=== PATIENT | male | born 1970 | race Caucasian/White ===

== ENCOUNTER 2020-03-23 13:19 | Emergency (ER) | payer MEDICAID, SELFPAY ==
[2020-03-23 13:27] VITALS: BP 142/106; PULSE 103; RESP 18; TEMP 37; O2SAT 99
--- NOTE | 2020-03-23 13:42 | ED.GENADULT ---
HPI - General Adult General Chief complaint: Psychiatric Symptoms <Sonia Tenorio MD - Last Filed: 04/05/20 07:17> Stated complaint: suicidal thoughts <Sonia Tenorio MD - Last Filed: 04/05/20 07:17> Time Seen by Provider: 03/23/20 13:26 <Sonia Tenorio MD - Last Filed: 04/05/20 07:17> Source: patient <Sonia Tenorio MD - Last Filed: 04/05/20 07:17> History of Present Illness HPI narrative: Patient is a 49 y/o male complaining of severe depression for last month. According to his friend, he lost his job and insurance several month ago. He is not on any meds for bipolar because he has no insurance. He has considered cutting his wrist and jumping in traffic. His friend also states that he talked about using his family's gun. He denies any fever, chills, chest pain, abdominal pain. <Sonia Tenorio MD - Last Filed: 04/05/20 07:17> Related Data Home medications: Home Medications Medication Instructions Recorded Confirmed No Home Medications 03/23/20 03/23/20 <oSnia Tenorio MD - Last Filed: 04/05/20 07:17> Allergies/adverse reactions: Allergies Allergy/AdvReac Type Severity Reaction Status Date / Time Sulfa (Sulfonamide Allergy Unknown Verified 03/23/20 13:36 Antibiotics) <Sonia Tenorio MD - Last Filed: 04/05/20 07:17> Review of Systems Constitutional: Constitutional: Denies chills, Denies fever(s), Denies headache(s) and Denies weakness <Sonia Tenorio MD - Last Filed: 04/05/20 07:17> Eyes: Eyes: Denies blurry vision <Sonia Tenorio MD - Last Filed: 04/05/20 07:17> ENT: Denies headache(s) and Denies neck pain <Sonia Tenorio MD - Last Filed: 04/05/20 07:17> Cardiovascular: Cardiovascular: Denies chest pain and Denies dyspnea <Sonia Tenorio MD - Last Filed: 04/05/20 07:17> Respiratory: Respiratory: Denies cough and Denies dyspnea <Sonia Tenorio MD - Last Filed: 04/05/20 07:17> Gastrointestinal: Gastrointestinal: Denies abdominal pain, Denies diarrhea, Denies nausea and Denies vomiting <Sonia Tenorio MD - Last Filed: 04/05/20 07:17> Genitourinary: Genitourinary: Denies hematuria and Denies dysuria <Sonia Tenorio MD - Last Filed: 04/05/20 07:17> Musculoskeletal: Musculoskeletal: Denies back pain and Denies neck pain <Sonia Tenorio MD - Last Filed: 04/05/20 07:17> Neurologic: Denies headache(s) and Denies weakness <Sonia Tenorio MD - Last Filed: 04/05/20 07:17> Psychiatric: Psychiatric: Reports as per HPI, Reports depression and Reports suicidal ideation <Sonia Tenorio MD - Last Filed: 04/05/20 07:17> [facility] Social History Social History: Social History Gender identity (if verbalized by the patient): Male <Sonia Tenorio MD - Last Filed: 04/05/20 07:17> Exam Const: General: no acute distress and well developed <Sonia Tenorio MD - Last Filed: 04/05/20 07:17> Orientation/consciousness: oriented to person, oriented to place, oriented to time and patient oriented x3 <Sonia Tenorio MD - Last Filed: 04/05/20 07:17> HENMT: Head: normocephalic <Sonia Tenorio MD - Last Filed: 04/05/20 07:17> Ears: external ears normal <Sonia Tenorio MD - Last Filed: 04/05/20 07:17> General nose exam: Normal external nose present <Sonia Tenorio MD - Last Filed: 04/05/20 07:17> Eyes: General: appearance normal, both eyes and all related structures <Sonia Tenorio MD - Last Filed: 04/05/20 07:17> Conjunctivae: conjunctivae normal <Sonia Tenorio MD - Last Filed: 04/05/20 07:17> Neck: Neck: normal visual inspection and full ROM <Sonia Tenorio MD - Last Filed: 04/05/20 07:17> Chest: Chest palpation & inspection: normal inspection of the chest and no tenderness <Sonai Tenorio MD - Last Filed: 04/05/20 07:17> Resp: Effort & Inspection: normal respiratory effort <Sonia Tenorio MD - Last Filed: 04/05/20 07:17> Auscultation: clear to auscultation bilaterally <Sonia Tenorio MD - Last Filed:
[2020-03-23 13:53] LABS: Basophils Percent Auto 0.4 % (0.2-1.2); Eosinophils Absolute Auto 0.4 K/mm3 (0-0.3); Eosinophils Percent Auto 3.7 % (0-4.4); Hematocrit 52.2 % (42.0-52.0); Immature Granulocyte Absolute 0.04 K/mm3 (0.00-0.031); Immature Granulocyte Percent A 0.4 % (0-0.5); Lymphocytes Absolute Auto 2.28 K/mm3 (0.9-3.2); Lymphocytes Percent Auto 22.9 % (18.3-44.2); Mean Corpuscular HGB Conc 34.5 g/dl (32-36); Mean Corpuscular Hemoglobin 29.7 pg (26-34); Mean Platelet Volume 9.9 fl (7.4-10.4); Monocytes Absolute Auto 0.5 K/mm3 (0.1-0.6); Neutrophils Absolute Auto 6.7 K/mm3 (1.3-6.7); Neutrophils Percent Auto 67.6 % (45.5-73.1); Platelet Count Result 251 k/mm3 (150-375); Red Blood Count 6.07 M/mm3 (4.6-6.20); Red Cell Distribution Width 14.2 % (11.5-14.5)
[2020-03-23 13:54] LABS: Add Urine Microscopic? NO; Appearance Urine Clear (Clear); Bilirubin Urine Negative (Negative); Blood Urine Negative (Negative); Color Urine Yellow (Yellow); Glucose Urine UA Negative (Negative); Ketones Urine Negative (Negative); Leukocyte Esterase Ur Negative LEU/UL (Negative); Nitrate Urine Negative (Negative); Protein Urine Negative (Negative); Specific Grav Ur 1.013 (1.001-1.035); Urobilinogen Urine Negative mg/dL (<2.0)
[2020-03-23 14:01] LABS: Alanine Aminotransferase 22 U/L (4-50); Albumin Level 4.6 g/dL (3.5-5.1); Alkaline Phosphatase 117 U/L (38-126); Anion Gap 9 mmol/L (8-16); Aspartate Amino Transferase 26 U/L (17-59); Bilirubin,Total 0.5 mg/dL (0.2-1.3); Blood Urea Nitrogen 15 mg/dL (9-20); Calcium 9.7 mg/dL (8.4-10.2); Carbon Dioxide 24 mmol/L (22-30); Chloride 103 mmol/L (98-107); Estimated CRCL calculation 80 ml/min; Estimated Glomerular Filt Rate > 60; Ethanol < 10 mg/dL (<10); Glucose 137 mg/dL (75-110); Potassium 4.3 mmol/L (3.4-5.0); Sodium 136 mmol/L (137-145)
[2020-03-23 14:07] LABS: Amphetamine Screen Urine Negative (Negative); Barbiturate Screen Urine Negative (Negative); Benzodiazepines Screen Urine Negative (Negative); Cannabinoid Screen Urine Negative (Negative); Cocaine Screen Urine Negative (Negative); Methadone Screen Urine Negative (Negative); Opiate Screen Urine Negative (Negative); Phencyclidine Screen Urine Negative (Negative)
[2020-03-23 14:35] LABS: Thyroid Stimulating Hormone 0.555 uIU/mL (0.465-4.680)
--- NOTE | 2020-03-23 16:00 | PC.NURSE ---
Pt. requested nicotine patch. Per EDP via verbal order readback give a 21mg transdermal patch of nicotine. Charting completed in SEP.
[2020-03-23] MEDS: NICOTINE (*PBKC) 21 MG PATCH 1 PATCH (16:24)
--- NOTE | 2020-03-23 16:56 | PC.NURSE ---
Pt. requesting medication for anxiety. Per EDP via verbal order readback give 1mg Ativan PO once. See MAR for charting.
[2020-03-23] MEDS: LORazepam 1 MG TABLET PO ×2 (17:09→20:51)
--- NOTE | 2020-03-23 18:54 | PC.NURSE ---
Faxed Face Sheet to [place], [place]
--- NOTE | 2020-03-23 19:58 | PC.NURSE ---
fax to [facility] in [place] new face sheet with the correct sss
--- NOTE | 2020-03-23 20:15 | PC.NURSE ---
pt sleeping at this time
--- NOTE | 2020-03-23 20:39 | PC.NURSE ---
fax to [facility] in [place]- chart
[2020-03-23 20:49] VITALS: BP 126/79; PULSE 96; RESP 15; O2SAT 98
--- NOTE | 2020-03-23 20:50 | PC.NURSE ---
Per Dr Jona perez to give pt 1MG PO Lorazepam for anxiety.
--- NOTE | 2020-03-23 23:08 | PC.NURSE ---
called crisis intervention, converse with esvin, she advised that [facility] denie him , she advised that in the am will try other hospitals.
--- NOTE | 2020-03-23 23:54 | PC.NURSE ---
pt sleeping at this time.
[2020-03-24 02:38] VITALS: BP 117/82; PULSE 71; RESP 18; O2SAT 98
--- NOTE | 2020-03-24 06:48 | PC.NURSE ---
pt awake , pending for crisis to start looking for placement.
[2020-03-24 06:50] VITALS: BP 118/78; PULSE 82; RESP 20; O2SAT 98
--- NOTE | 2020-03-24 07:10 | PC.NURSE ---
Report received from JIGNA Mejia. Pt's breakfast tray given. Suicidal precautions remain in place, pt remains in room 15, sitter at bedside for 1:1 observation. Pt denies needs at present.
--- NOTE | 2020-03-24 08:24 | PC.NURSE ---
[facility] calls regarding patient, states that they're still attempting to find placement appropriate for patient needs. Also checked on covid results.
[2020-03-24] MEDS: LORazepam 1 MG TABLET PO ×2 (08:35→20:54)
--- NOTE | 2020-03-24 10:00 | PC.NURSE ---
Pt speaking with family member on phone.
--- NOTE | 2020-03-24 10:24 | PC.NURSE ---
pt's chart faxed to [facility], and [facility]
--- NOTE | 2020-03-24 11:17 | PC.NURSE ---
Received call from Tracy at [facility], states that they do not have an appropriate bed for the patient at this time.
[2020-03-24 12:40] LABS: SARS-CoV-2 RNA PCR Negative
--- NOTE | 2020-03-24 13:32 | PC.NURSE ---
o2 placed for patients o2 sats 88-94% per order Dr. Tenorio
--- NOTE | 2020-03-24 16:14 | PC.NURSE ---
Pt has been accepted to [facility], awaiting RN to call for report. Pt requesting something for sedation explained that pt has been accepted and do not want to give anything to make the patient drowsy or ruin their evaluation. Pt verbalizes understanding. Offered other forms to deal with anxiety. Pt offered coffee and states would like to try that while he is waiting.
--- NOTE | 2020-03-24 17:51 | PC.NURSE ---
Received call from [facility], states didn't receive faxed papers from [phone]. New fax number received and will attempt to send again.
--- NOTE | 2020-03-24 18:23 | PC.NURSE ---
Pt given dinner tray. Papers sent a third time to [facility] to an additional number as [facility] continue to state have not gotten the call.
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
[2020-03-24 18:47] VITALS: BP 129/94; PULSE 83; RESP 18; TEMP 36.5; O2SAT 96
--- NOTE | 2020-03-24 19:22 | PC.NURSE ---
Report to JIGNA Prieto, to continue care. Crisis here as well, and updated on patient not wanting to go to [facility].
[2020-03-24 19:30] VITALS: BP 120/85; PULSE 85; RESP 12; TEMP 36.6; O2SAT 98
--- NOTE | 2020-03-24 19:31 | PC.NURSE ---
Assumed care of pt at this time. Report from JIGNA Jacinto
--- NOTE | 2020-03-24 21:17 | PC.NURSE ---
Informed [facility] pt is refusing to be admitted to their facility.
--- NOTE | 2020-03-24 22:12 | PC.NURSE ---
Pt girlfriend present and brought patients pollydent.
--- NOTE | 2020-03-24 22:55 | PC.NURSE ---
spoke w/ kiki from crisis she is to call facilities for placement
[2020-03-24 23:04] VITALS: BP 128/89; PULSE 77; RESP 18; TEMP 36.6; O2SAT 96
[2020-03-25] MEDS: diphenhydrAMINE HCl CAP 25 MG CAPSULE 50 MG PO (01:00)
--- NOTE | 2020-03-25 01:00 | PC.NURSE ---
JIGNA Claudio spoke w/ woodworker helper. States she filled out the involuntary petition for patient admission to psychiatric facility. Pt. information and paperwork is up to date. states she had made several calls to facilities but has no beds. disposal worker to follow up in the morning.
[2020-03-25 06:00] VITALS: BP 117/89; PULSE 89; RESP 12; TEMP 36.8; O2SAT 97
[2020-03-25 07:05] VITALS: BP 119/78; PULSE 99; RESP 19; O2SAT 99
--- NOTE | 2020-03-25 07:11 | PC.NURSE ---
Ordered pt. breakfast. Report to JIGNA Mason
--- NOTE | 2020-03-25 07:40 | PC.NURSE ---
Assumed care of pt, pt is alert and upright on stretcher, discussed POC, breakfast tray ordered, sitter remains at bedside.
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
--- NOTE | 2020-03-25 08:04 | PC.NURSE ---
Per Milagros from Crisis, Involuntary Petition was faxed to [facility].
--- NOTE | 2020-03-25 09:25 | PC.NURSE ---
Pt resting at this time, equal chest rise and fall - alert to verbal stimuli, pt has breakfast tray at bedside, no requests at this time, sitter at bedside.
--- NOTE | 2020-03-25 09:59 | PC.NURSE ---
Milagros from Crisis called to inform pt has been accepted for in patient at [facility]. Involuntary sheet was faxed to them at this time per request at [phone]
--- NOTE | 2020-03-25 10:49 | PC.NURSE ---
Pt c/o anxiety, discussed with Dr Mcgill and given VORB to give Ativan 1MG PO. Pt remains calm and cooperative, sitter at bedside.
[2020-03-25] MEDS: LORazepam 1 MG TABLET PO (10:50)
[2020-03-25 10:51] VITALS: BP 130/90; PULSE 100; RESP 15; O2SAT 99
--- NOTE | 2020-03-25 11:32 | PC.NURSE ---
[facility] called to confirm accepted pt, for BED [id number], Dr Zepeda is accepting physician. This RN gave report to Mike BENITO at [phone], pt is aware of decision to transfer to [facility] and signed consent for transfer.
[2020-03-25 12:26] VITALS: BP 132/97; PULSE 78; RESP 14; O2SAT 97
== END 2020-03-25 12:28 | disposition short-term general hospital (02) ==
PROVIDERS: Emergency Medicine; Emergency Provider Emergency Medicine
DX: F31.9 Bipolar disorder, unspecified (principal); Z20.828 Contact with and (suspected) exposure to other viral communicable diseases
CPT/HCPCS: 36415; 80053; 80307; 81003; 84443; 85025; 87635; 99285; A9270; C9803; U0003